=== PATIENT | female | born 1950 | race Two or more races ===

== ENCOUNTER 2017-11-07 10:00 | Inpatient (IN) | payer OTHER ==
[~2017-11-07] VITALS: Ht 157.5 cm; Wt 68.5 kg
[2017-11-07] MEDS ORDERED: ZOCOR20 MG PO (12:09)
[2017-11-07] MEDS ORDERED: VASOTEC5 MG PO (12:09)
== END 2017-11-17 14:48 | DRG 470 ==
LOC: O/R 11-15 06:00 → RECOVERY 11-15 10:00 → SURH 11-15 10:26
PROVIDERS: Orthopaedic Surgery
PROC: 0SRD0J9 Replacement of Left Knee Joint with Synthetic Substitute, Cemented, Open Approach (ICD-10-PCS; principal; 2017-11-15 10:00)
DX: M17.12 Unilateral primary osteoarthritis, left knee (principal); D62 Acute posthemorrhagic anemia; I10 Essential (primary) hypertension; E11.9 Type 2 diabetes mellitus without complications

== ENCOUNTER 2017-11-17 22:18 | Emergency (ER) | payer OTHER ==
[~2017-11-17] VITALS: Ht 152.4 cm; Wt 68.5 kg
[~2017-11-17 22:18] MED LIST: VASOTEC5 MG PO; ZOCOR20 MG PO
== END 2017-11-18 19:15 | disposition designated cancer center or children's hospital (05) ==
LOC: ER 22:18
DX: R09.02 Hypoxemia (principal); K22.8 Other specified diseases of esophagus; Z96.652 Presence of left artificial knee joint